=== PATIENT | male | born 1965 | race African-American/Black ===

== ENCOUNTER 2017-04-25 20:20 | Emergency (ER) | payer MEDICARE, OTHER, MEDICAID ==
[~2017-04-25] VITALS: Ht 172.7 cm; Wt 75.0 kg
[~2017-04-25 20:20] MED LIST: ASPI-1160 PO; BUDE6HFA INH; CALC0.25 PO; CALC667C4 PO; CINA60 PO; CLON0.3T PO; DIPH25CA83 PO; FLUT16SP15 NS; GABA100C PO; HYDR-4001 PO; MINO2.5T19 GT; NIFE30TA94 PO; NITR0.4T49 SL; SEVE800T8 PO; TRAM50TA94 PO
[2017-04-25] MEDS ORDERED: IBUPROFEN 600MG TABLET PO ONE (20:45)
[2017-04-25 21:05] LABS: HEMATOCRIT. 32.9 % (42.0-52.0); HEMOGLOBIN. 11.1 g/dL (14.0-18.0); MEAN CORPUSCULAR HEMOGLOBIN 28.1 pg (28.0-32.0); MEAN CORPUSCULAR VOLUME 83.6 fL (80.0-94.0); PLATELET 167 x1000/uL (130-400); RED BLOOD CELL COUNT 3.94 mill/uL (4.7-6.1); RED CELL DISTRIBUTION WIDTH 16.6 % (11.6-14.6)
[2017-04-25 21:10] LABS: CHLORIDE 100 mEq/L (98-107)
[2017-04-25 21:11] LABS: INR 1.2; PROTHROMBIN TIME 12.5 sec (9.4-11.6)
[2017-04-25 21:19] LABS: CARBON DIOXIDE 27 mEq/L (21-32)
[2017-04-25 21:22] LABS: PLATELET ESTIMATE NORMAL
[2017-04-25 22:11] VITALS: BP 210/101
== END 2017-04-25 22:50 | disposition home or self-care (01) ==
LOC: ER 20:38
DX: M79.602 Pain in left arm (principal); M79.89 Other specified soft tissue disorders; I12.0 Hypertensive chronic kidney disease with stage 5 chronic kidney disease or end stage renal disease; J45.909 Unspecified asthma, uncomplicated; N18.6 End stage renal disease; Z79.82 Long term (current) use of aspirin; Z99.2 Dependence on renal dialysis; Z88.8 Allergy status to other drugs, medicaments and biological substances; Z88.6 Allergy status to analgesic agent
CPT/HCPCS: 36415; 80053; 85025; 85610; 93971; 99285

== ENCOUNTER 2017-08-09 23:47 | Emergency (ER) | payer MEDICARE, OTHER, MEDICAID ==
[~2017-08-09] VITALS: Ht 172.7 cm; Wt 81.0 kg
[2017-08-10] MEDS ORDERED: ASPIRIN 81MG TABLET PO ONE
[2017-08-10 01:02] LABS: HEMATOCRIT. 31.2 % (42.0-52.0); HEMOGLOBIN. 10.4 g/dL (14.0-18.0); MEAN CORPUSCULAR HEMOGLOBIN 28.9 pg (28.0-32.0); MEAN PLATELET VOLUME 7.1 fl (7.4-10.4); PLATELET 190 x1000/uL (130-400); RED BLOOD CELL COUNT 3.59 mill/uL (4.7-6.1); RED CELL DISTRIBUTION WIDTH 16.4 % (11.6-14.6)
[2017-08-10 01:06] LABS: INR 1.2
[2017-08-10 01:07] LABS: CHLORIDE 94 mEq/L (98-107)
[2017-08-10 01:11] LABS: ETHANOL BLOOD < 10 mg/dL
[2017-08-10 01:27] LABS: NUCLEATED RED BLOOD CELLS 1 /100 WBC; PLATELET ESTIMATE NORMAL
[2017-08-10 06:15] VITALS: BP 125/75
== END 2017-08-10 06:56 | disposition home or self-care (01) ==
LOC: ER 23:47
DX: R07.9 Chest pain, unspecified (principal); I11.0 Hypertensive heart disease with heart failure; I50.9 Heart failure, unspecified; J45.909 Unspecified asthma, uncomplicated; I44.0 Atrioventricular block, first degree; I25.10 Atherosclerotic heart disease of native coronary artery without angina pectoris; J98.11 Atelectasis; Z88.5 Allergy status to narcotic agent; Z99.2 Dependence on renal dialysis; Z79.82 Long term (current) use of aspirin
CPT/HCPCS: 36415; 71045; 80053; 83690; 84484; 85025; 85610; 93005; 99285; G0482

== ENCOUNTER 2018-02-20 18:50 | Inpatient (IN) | payer MEDICARE, MEDICAID, OTHER ==
[~2018-02-20] VITALS: Ht 172.7 cm; Wt 89.4 kg
[2018-02-20 19:00] VITALS: BP 156/68
[2018-02-20 20:00] VITALS: BP 156/68
[2018-02-20] MEDS ORDERED: ACETAMINOPHEN 325MG TABLET PO PRN (21:30)
[2018-02-20] MEDS ORDERED: NITROGLYCERIN 0.4MG TABLET SL SL PRN (21:30)
[2018-02-20] MEDS ORDERED: ONDANSETRON HCL 4MG TABLET PO PRN (21:30)
[2018-02-20] MEDS ORDERED: HYDRALAZINE HCL 10MG TABLET PO SCH (21:30)
[2018-02-20] MEDS: ATORVASTATIN CALCIUM 40MG TABLET PO SCH (22:23)
[2018-02-20] MEDS: TRAMADOL 50MG TABLET PO PRN (22:24)
[2018-02-20] MEDS: IPRATROPIUM/ALBUTEROL 0.5-3(2.5)MG/3ML NEB HHN SCH (23:56)
[2018-02-21] MEDS ORDERED: HYDRALAZINE 20 MG in SODIUM CHLORIDE 0.9% 49 ML IV PRN (00:30)
[2018-02-21] MEDS: DIPHENHYDRAMINE 50MG CAPSULE PO PRN (01:22)
[2018-02-21] MEDS: ALPRAZOLAM 0.5 MG TABLET PO PRN (03:10)
[2018-02-21] MEDS: IPRATROPIUM/ALBUTEROL 0.5-3(2.5)MG/3ML NEB HHN SCH ×5 (04:04→21:11)
[2018-02-21 07:22] LABS: BASOPHILS % 0.3 % (0.0-2.0); EOSINOPHILS % 0.5 % (0.0-5.0); HEMATOCRIT. 25.2 % (42.0-52.0); HEMOGLOBIN. 8.3 g/dL (14.0-18.0); LYMPHOCYTES % 8.3 % (20.0-50.0); MEAN CORPUSCULAR HEMOGLOBIN 28.9 pg (28.0-32.0); MEAN PLATELET VOLUME 6.8 fl (7.4-10.4); MONOCYTES % 10.8 % (2.0-8.0); NEUTROPHILS % 80.1 % (40.0-76.0); PLATELET 287 x1000/uL (130-400); RED BLOOD CELL COUNT 2.86 mill/uL (4.7-6.1); RED CELL DISTRIBUTION WIDTH 17.1 % (11.6-14.6)
[2018-02-21] MEDS: CLONIDINE 0.2MG TABLET PO SCH ×2 (07:30→14:16)
[2018-02-21 08:07] LABS: CHLORIDE 97 mEq/L (98-107)
[2018-02-21 08:17] VITALS: BP 158/72
[2018-02-21] MEDS: CYANOCOBALAMIN 1000MCG TABLET PO SCH (08:51)
[2018-02-21] MEDS: ASPIRIN 81MG TABLET PO SCH (08:51)
[2018-02-21] MEDS: PREDNISONE 20MG TABLET PO SCH (08:51)
[2018-02-21] MEDS: NAPROXEN 250MG TABLET PO SCH ×2 (08:51→23:59)
[2018-02-21] MEDS: FAMOTIDINE 20MG TABLET PO SCH (08:52)
[2018-02-21] MEDS: CARVEDILOL 25MG TABLET PO SCH (08:52)
[2018-02-21] MEDS: AMLODIPINE 10MG TABLET PO SCH (08:53)
[2018-02-21] MEDS: NITROGLYCERIN OINT 1GM/INCH UDPKT TD SCH ×2 (09:18→17:36)
[2018-02-21] MEDS: LIDOCAINE 5% PATCH TOP SCH (14:56)
[2018-02-21 15:22] LABS: BG BASE EXCESS -1.7 mmol/L (-2.0-2.0); BG CARBOXYHEMOGLOBIN 1.2 % (0.5-1.5); BG DEOXYHEMOGLOBIN 2.9 % (0.0-5.0); BG HCO3 ACT 24.8 mmol/L (22.0-26.0); BG METHEMOGLOBIN 0.2 % (0.0-1.5); BG OXYGEN SATURATION 97.1 % (92.0-98.5); BG OXYHEMOGLOBIN 95.7 % (94.0-97.0); BG PCO2 50.9 mmHg (35.0-45.0); BG PH 7.306 (7.350-7.450); BG PO2 97.7 mmHg (75.0-100.0); BG SAMPLE SITE RIGHT RADIAL; BG VENT MODE NASAL CANNULA
[2018-02-21 20:00] VITALS: BP 138/70
[2018-02-21] MEDS: TRAMADOL 50MG TABLET PO PRN (22:07)
[2018-02-21] MEDS ORDERED: MORPHINE SULFATE 10MG/5ML ORAL SOLN UDC PO PRN (23:30)
[2018-02-21] MEDS ORDERED: MORPHINE SULFATE 2 MG/ML CPJ (NOT FOR IM USE) IV PRN (23:30)
[2018-02-21] MEDS: MORPHINE SULFATE 10MG/5ML ORAL SOLN UDC PO PRN (23:58)
[2018-02-21] MEDS: ATORVASTATIN CALCIUM 40MG TABLET PO SCH (23:59)
[2018-02-22] MEDS: IPRATROPIUM/ALBUTEROL 0.5-3(2.5)MG/3ML NEB HHN SCH ×6 (00:40→21:31)
[2018-02-22] MEDS: HYDRALAZINE HCL 25MG TABLET PO SCH ×4 (00:49→21:55)
[2018-02-22] MEDS: CLONIDINE 0.2MG TABLET PO SCH ×4 (00:49→22:57)
[2018-02-22] MEDS: MORPHINE SULFATE 10MG/5ML ORAL SOLN UDC PO PRN (05:07)
[2018-02-22 07:44] LABS: HEMATOCRIT. 23.8 % (42.0-52.0); MEAN CORPUSCULAR HEMOGLOBIN 29.4 pg (28.0-32.0); MEAN CORPUSCULAR VOLUME 87.6 fL (80.0-94.0); MEAN PLATELET VOLUME 6.8 fl (7.4-10.4); PLATELET 271 x1000/uL (130-400); RED BLOOD CELL COUNT 2.71 mill/uL (4.7-6.1); RED CELL DISTRIBUTION WIDTH 17.8 % (11.6-14.6)
[2018-02-22 08:00] VITALS: BP 155/88
[2018-02-22] MEDS: CARVEDILOL 25MG TABLET PO SCH ×3 (09:01→21:54)
[2018-02-22] MEDS: FAMOTIDINE 20MG TABLET PO SCH (09:01)
[2018-02-22] MEDS: NITROGLYCERIN OINT 1GM/INCH UDPKT TD SCH ×2 (09:01→16:59)
[2018-02-22] MEDS: CYANOCOBALAMIN 1000MCG TABLET PO SCH (09:01)
[2018-02-22] MEDS: ASPIRIN 81MG TABLET PO SCH (09:02)
[2018-02-22] MEDS: AMLODIPINE 10MG TABLET PO SCH (09:02)
[2018-02-22] MEDS: NAPROXEN 250MG TABLET PO SCH ×2 (09:02→21:54)
[2018-02-22] MEDS: PREDNISONE 20MG TABLET PO SCH (09:02)
[2018-02-22] MEDS: OXYCODONE HCL 5MG TABLET PO SCH ×3 (10:38→17:01)
[2018-02-22 10:52] LABS: PLATELET ESTIMATE NORMAL
[2018-02-22] MEDS: LIDOCAINE 5% PATCH TOP SCH (14:08)
[2018-02-22 20:00] VITALS: BP 137/80
[2018-02-22] MEDS: ATORVASTATIN CALCIUM 40MG TABLET PO SCH (21:53)
[2018-02-23] MEDS: IPRATROPIUM/ALBUTEROL 0.5-3(2.5)MG/3ML NEB HHN SCH ×4 (00:08→20:08)
[2018-02-23] MEDS: OXYCODONE HCL 5MG TABLET PO SCH ×6 (05:54→23:17)
[2018-02-23] MEDS: CLONIDINE 0.2MG TABLET PO SCH ×2 (06:00→07:40)
[2018-02-23] MEDS: HYDRALAZINE HCL 25MG TABLET PO SCH ×3 (06:29→21:06)
[2018-02-23 08:06] VITALS: BP 152/71
[2018-02-23] MEDS: NAPROXEN 250MG TABLET PO SCH ×2 (08:17→20:36)
[2018-02-23] MEDS: NITROGLYCERIN OINT 1GM/INCH UDPKT TD SCH ×2 (08:17→16:21)
[2018-02-23] MEDS: ASPIRIN 81MG TABLET PO SCH (08:18)
[2018-02-23] MEDS: AMLODIPINE 10MG TABLET PO SCH (08:18)
[2018-02-23] MEDS: CYANOCOBALAMIN 1000MCG TABLET PO SCH (08:18)
[2018-02-23] MEDS: CARVEDILOL 25MG TABLET PO SCH ×2 (08:18→20:36)
[2018-02-23] MEDS: FAMOTIDINE 20MG TABLET PO SCH (08:19)
[2018-02-23] MEDS: PREDNISONE 20MG TABLET PO SCH (08:19)
[2018-02-23 08:33] LABS: HEMATOCRIT. 26.8 % (42.0-52.0); HEMOGLOBIN. 8.9 g/dL (14.0-18.0); MEAN CORPUSCULAR HEMOGLOBIN 29.3 pg (28.0-32.0); MEAN CORPUSCULAR VOLUME 87.7 fL (80.0-94.0); MEAN PLATELET VOLUME 6.7 fl (7.4-10.4); PLATELET 289 x1000/uL (130-400); RED BLOOD CELL COUNT 3.05 mill/uL (4.7-6.1)
[2018-02-23 09:14] LABS: PHOSPHORUS 5.4 mg/dL (2.5-4.9)
[2018-02-23 09:50] LABS: PLATELET ESTIMATE NORMAL
[2018-02-23 10:01] LABS: VITAMIN B12 SERUM >2000 pg/mL pg/mL (211-911)
[2018-02-23] MEDS: ALPRAZOLAM 0.5 MG TABLET PO PRN (10:17)
[2018-02-23 11:44] LABS: FERRITIN 517 ng/mL (22-322); PROSTRATE SPECIFIC AG TOTAL 0.88 ng/mL (0.0-4.0)
[2018-02-23] MEDS: CLONIDINE 0.3MG TABLET PO SCH ×2 (14:00→21:06)
[2018-02-23] MEDS ORDERED: IPRATROPIUM/ALBUTEROL 0.5-3(2.5)MG/3ML NEB HHN PRN (14:15)
[2018-02-23] MEDS: LIDOCAINE 5% PATCH TOP SCH (15:14)
[2018-02-23] MEDS: BUDESONIDE 0.5MG/2ML NEB HHN SCH (16:49)
[2018-02-23 20:00] VITALS: BP 131/62
[2018-02-23] MEDS ORDERED: BISACODYL 10MG SUPP PR PRN (20:30)
[2018-02-23] MEDS ORDERED: LACTULOSE 20G/30ML UDC PO NR (20:30)
[2018-02-23] MEDS: ATORVASTATIN CALCIUM 40MG TABLET PO SCH (20:36)
[2018-02-23] MEDS: POLYETHYLENE GLYCOL 3350 (17GM) 1 DOSE PACK PO SCH ×2 (20:36→20:43)
[2018-02-23] MEDS ORDERED: EPOETIN ALFA 4000UNITS/ML VIAL SUBCUT SCH (21:00)
[2018-02-23] MEDS: TRAMADOL 50MG TABLET PO PRN (21:07)
[2018-02-24] MEDS ORDERED: LACTULOSE 20G/30ML UDC PO PRN
[2018-02-24] MEDS: IPRATROPIUM/ALBUTEROL 0.5-3(2.5)MG/3ML NEB HHN SCH ×6 (00:09→21:20)
[2018-02-24] MEDS: ALPRAZOLAM 0.5 MG TABLET PO PRN ×2 (04:43→14:18)
[2018-02-24] MEDS: HYDRALAZINE HCL 25MG TABLET PO SCH ×3 (05:07→21:47)
[2018-02-24] MEDS: CLONIDINE 0.3MG TABLET PO SCH ×3 (05:07→21:48)
[2018-02-24] MEDS: OXYCODONE HCL 5MG TABLET PO SCH ×4 (05:08→23:33)
[2018-02-24 06:02] VITALS: BP 156/78
[2018-02-24 08:10] VITALS: BP 128/63
[2018-02-24] MEDS: NAPROXEN 250MG TABLET PO SCH ×2 (08:23→21:45)
[2018-02-24] MEDS: PREDNISONE 20MG TABLET PO SCH (08:23)
[2018-02-24] MEDS: CYANOCOBALAMIN 1000MCG TABLET PO SCH (08:24)
[2018-02-24] MEDS: FOLIC ACID 1MG TABLET PO SCH (08:24)
[2018-02-24] MEDS: ASPIRIN 81MG TABLET PO SCH (08:24)
[2018-02-24] MEDS: DOCUSATE SODIUM 100MG CAPSULE PO SCH ×2 (08:24→17:18)
[2018-02-24] MEDS: FAMOTIDINE 20MG TABLET PO SCH (08:24)
[2018-02-24] MEDS: CARVEDILOL 25MG TABLET PO SCH ×2 (08:25→21:00)
[2018-02-24] MEDS: NITROGLYCERIN OINT 1GM/INCH UDPKT TD SCH ×2 (08:25→17:18)
[2018-02-24] MEDS: AMLODIPINE 10MG TABLET PO SCH (08:25)
[2018-02-24] MEDS: BUDESONIDE 0.5MG/2ML NEB HHN SCH ×2 (08:38→21:19)
[2018-02-24] MEDS: LIDOCAINE 5% PATCH TOP SCH (14:19)
[2018-02-24] MEDS: CARBAMIDE PEROXIDE 6.5% OTIC SOLN 15ML EACH EAR SCH (17:18)
[2018-02-24 20:00] VITALS: BP 147/74
[2018-02-24] MEDS: POLYETHYLENE GLYCOL 3350 (17GM) 1 DOSE PACK PO SCH (21:00)
[2018-02-24] MEDS: ATORVASTATIN CALCIUM 40MG TABLET PO SCH (21:45)
[2018-02-25] MEDS: ALPRAZOLAM 0.5 MG TABLET PO PRN ×2 (00:26→16:52)
[2018-02-25 01:14] VITALS: BP 188/92
[2018-02-25] MEDS: CLONIDINE 0.1MG TABLET PO PRN ×2 (01:14→18:31)
[2018-02-25] MEDS: IPRATROPIUM/ALBUTEROL 0.5-3(2.5)MG/3ML NEB HHN SCH ×3 (01:52→21:29)
[2018-02-25 02:40] VITALS: BP 185/113
[2018-02-25 05:11] VITALS: BP 153/61
[2018-02-25] MEDS: HYDRALAZINE HCL 25MG TABLET PO SCH ×3 (05:54→22:28)
[2018-02-25] MEDS: CLONIDINE 0.3MG TABLET PO SCH ×3 (05:54→22:28)
[2018-02-25] MEDS: OXYCODONE HCL 5MG TABLET PO SCH ×4 (05:55→23:51)
[2018-02-25 08:12] LABS: HEMATOCRIT. 28.2 % (42.0-52.0); HEMOGLOBIN. 9.2 g/dL (14.0-18.0); MEAN CORPUSCULAR HEMOGLOBIN 28.9 pg (28.0-32.0); MEAN CORPUSCULAR VOLUME 88.5 fL (80.0-94.0); MEAN PLATELET VOLUME 7.1 fl (7.4-10.4); PLATELET 279 x1000/uL (130-400); RED BLOOD CELL COUNT 3.18 mill/uL (4.7-6.1); RED CELL DISTRIBUTION WIDTH 18.5 % (11.6-14.6)
[2018-02-25 08:17] VITALS: BP 131/70
[2018-02-25] MEDS: DOCUSATE SODIUM 100MG CAPSULE PO SCH ×2 (10:54→16:16)
[2018-02-25] MEDS: CARVEDILOL 25MG TABLET PO SCH ×2 (10:55→20:07)
[2018-02-25] MEDS: NAPROXEN 250MG TABLET PO SCH ×2 (10:55→20:07)
[2018-02-25] MEDS: FOLIC ACID 1MG TABLET PO SCH (10:56)
[2018-02-25] MEDS: CYANOCOBALAMIN 1000MCG TABLET PO SCH (10:56)
[2018-02-25] MEDS: AMLODIPINE 10MG TABLET PO SCH (10:57)
[2018-02-25] MEDS: ASPIRIN 81MG TABLET PO SCH (10:57)
[2018-02-25] MEDS: PREDNISONE 20MG TABLET PO SCH (10:57)
[2018-02-25] MEDS: FAMOTIDINE 20MG TABLET PO SCH (10:57)
[2018-02-25] MEDS: NITROGLYCERIN OINT 1GM/INCH UDPKT TD SCH ×2 (10:58→16:16)
[2018-02-25] MEDS: CARBAMIDE PEROXIDE 6.5% OTIC SOLN 15ML EACH EAR SCH ×2 (10:58→16:16)
[2018-02-25 13:49] LABS: NUCLEATED RED BLOOD CELLS 1 /100 WBC; PLATELET ESTIMATE NORMAL
[2018-02-25] MEDS: LIDOCAINE 5% PATCH TOP SCH (14:42)
[2018-02-25] MEDS: BUDESONIDE 0.5MG/2ML NEB HHN SCH ×2 (15:30→21:29)
[2018-02-25] MEDS ORDERED: TRAMADOL 50MG TABLET PO PRN (15:30)
[2018-02-25 20:00] VITALS: BP 183/81
[2018-02-25] MEDS: ATORVASTATIN CALCIUM 40MG TABLET PO SCH (20:08)
[2018-02-25] MEDS: POLYETHYLENE GLYCOL 3350 (17GM) 1 DOSE PACK PO SCH (21:00)
[2018-02-25] MEDS ORDERED: EPOETIN ALFA 4000UNITS/ML VIAL SUBCUT SCH (21:00)
[2018-02-25 23:51] VITALS: BP 207/104
[2018-02-26] VITALS (7 sets, daily range): BP systolic 151–205; BP diastolic 62–109
[2018-02-26] MEDS: IPRATROPIUM/ALBUTEROL 0.5-3(2.5)MG/3ML NEB HHN SCH ×4 (00:24→15:42)
[2018-02-26] MEDS: ALPRAZOLAM 0.5 MG TABLET PO PRN (00:57)
[2018-02-26] MEDS: CLONIDINE 0.1MG TABLET PO PRN ×2 (02:28→10:29)
[2018-02-26] MEDS: HYDRALAZINE HCL 25MG TABLET PO SCH ×3 (05:46→22:13)
[2018-02-26] MEDS: CLONIDINE 0.3MG TABLET PO SCH ×3 (05:46→22:14)
[2018-02-26] MEDS: OXYCODONE HCL 5MG TABLET PO SCH ×4 (05:47→23:23)
[2018-02-26] MEDS: BUDESONIDE 0.5MG/2ML NEB HHN SCH ×2 (07:29→21:35)
[2018-02-26] MEDS ORDERED: ALPRAZOLAM 0.5 MG TABLET PO PRN (08:30)
[2018-02-26] MEDS ORDERED: TRAMADOL 50MG TABLET PO PRN (08:30)
[2018-02-26] MEDS: PREDNISONE 20MG TABLET PO SCH (08:45)
[2018-02-26] MEDS: CYANOCOBALAMIN 1000MCG TABLET PO SCH (08:45)
[2018-02-26] MEDS: ASPIRIN 81MG TABLET PO SCH (08:45)
[2018-02-26] MEDS: CARVEDILOL 25MG TABLET PO SCH ×2 (08:45→22:11)
[2018-02-26] MEDS: AMLODIPINE 10MG TABLET PO SCH (08:45)
[2018-02-26] MEDS: NITROGLYCERIN OINT 1GM/INCH UDPKT TD SCH ×2 (08:45→17:00)
[2018-02-26] MEDS: NAPROXEN 250MG TABLET PO SCH ×2 (08:45→22:12)
[2018-02-26] MEDS: FAMOTIDINE 20MG TABLET PO SCH (08:45)
[2018-02-26] MEDS: FOLIC ACID 1MG TABLET PO SCH (08:45)
[2018-02-26] MEDS: DOCUSATE SODIUM 100MG CAPSULE PO SCH ×2 (08:45→17:00)
[2018-02-26] MEDS: CARBAMIDE PEROXIDE 6.5% OTIC SOLN 15ML EACH EAR SCH ×2 (08:46→17:41)
[2018-02-26] MEDS ORDERED: LOSARTAN POTASSIUM 25 MG TABLET PO SCH (10:00)
[2018-02-26] MEDS: LIDOCAINE 5% PATCH TOP SCH (15:19)
[2018-02-26] MEDS: DIPHENHYDRAMINE 50MG CAPSULE PO PRN (16:46)
[2018-02-26 19:06] LABS: 25-HYDROXY VITAMIN D3 17 ng/mL (.)
[2018-02-26] MEDS: POLYETHYLENE GLYCOL 3350 (17GM) 1 DOSE PACK PO SCH (21:00)
[2018-02-26] MEDS: ATORVASTATIN CALCIUM 40MG TABLET PO SCH (22:11)
[2018-02-26] MEDS ORDERED: DESMOPRESSIN ACETATE IVPB 30 MCG in SODIUM CHLORIDE 0.9% 50 ML IV NR (23:30)
[2018-02-27] MEDS: IPRATROPIUM/ALBUTEROL 0.5-3(2.5)MG/3ML NEB HHN SCH (01:21)
[2018-02-27 02:00] VITALS: BP 146/75
== END 2018-02-27 02:15 | disposition short-term general hospital (02) | DRG 70 ==
PROVIDERS: ADMIT Physical Medicine & Rehabilitation Spinal Cord Injury Medicine; ATTEND Internal Medicine Critical Care Medicine
PROC: 5A1D70Z Performance of Urinary Filtration, Intermittent, Less than 6 Hours Per Day (ICD-10-PCS; principal; 2018-02-21)
PROC: 5A09357 Assistance with Respiratory Ventilation, Less than 24 Consecutive Hours, Continuous Positive Airway Pressure (ICD-10-PCS; 2018-02-22)
PROC: 5A09357 Assistance with Respiratory Ventilation, Less than 24 Consecutive Hours, Continuous Positive Airway Pressure (ICD-10-PCS; 2018-02-23)
PROC: 5A09357 Assistance with Respiratory Ventilation, Less than 24 Consecutive Hours, Continuous Positive Airway Pressure (ICD-10-PCS; 2018-02-24)
PROC: 5A1D70Z Performance of Urinary Filtration, Intermittent, Less than 6 Hours Per Day (ICD-10-PCS; 2018-02-25)
PROC: 5A09357 Assistance with Respiratory Ventilation, Less than 24 Consecutive Hours, Continuous Positive Airway Pressure (ICD-10-PCS; 2018-02-25)
PROC: 5A1D70Z Performance of Urinary Filtration, Intermittent, Less than 6 Hours Per Day (ICD-10-PCS; 2018-02-26)
DX: G93.49 Other encephalopathy (principal); I46.9 Cardiac arrest, cause unspecified; N18.6 End stage renal disease; J18.9 Pneumonia, unspecified organism; E44.0 Moderate protein-calorie malnutrition; E87.1 Hypo-osmolality and hyponatremia; I12.0 Hypertensive chronic kidney disease with stage 5 chronic kidney disease or end stage renal disease; I42.9 Cardiomyopathy, unspecified; J94.2 Hemothorax; J90 Pleural effusion, not elsewhere classified; J44.1 Chronic obstructive pulmonary disease with (acute) exacerbation; I24.9 Acute ischemic heart disease, unspecified; J44.0 Chronic obstructive pulmonary disease with (acute) lower respiratory infection; T82.838A Hemorrhage due to vascular prosthetic devices, implants and grafts, initial encounter; E66.01 Morbid (severe) obesity due to excess calories; E78.5 Hyperlipidemia, unspecified; E87.5 Hyperkalemia; G47.33 Obstructive sleep apnea (adult) (pediatric); G62.9 Polyneuropathy, unspecified; G89.29 Other chronic pain; M13.0 Polyarthritis, unspecified; T78.3XXA Angioneurotic edema, initial encounter; S30.1XXA Contusion of abdominal wall, initial encounter; R53.81 Other malaise; G31.84 Mild cognitive impairment of uncertain or unknown etiology; D52.9 Folate deficiency anemia, unspecified; T43.595A Adverse effect of other antipsychotics and neuroleptics, initial encounter; F06.31 Mood disorder due to known physiological condition with depressive features; E87.70 Fluid overload, unspecified; Y84.1 Kidney dialysis as the cause of abnormal reaction of the patient, or of later complication, without mention of misadventure at the time of the procedure; Y92.230 Patient room in hospital as the place of occurrence of the external cause; Z87.891 Personal history of nicotine dependence; Z83.3 Family history of diabetes mellitus; Z82.49 Family history of ischemic heart disease and other diseases of the circulatory system; I25.2 Old myocardial infarction; Z91.19 Patient's noncompliance with other medical treatment and regimen; Z99.2 Dependence on renal dialysis; Z79.899 Other long term (current) drug therapy; Z79.82 Long term (current) use of aspirin; Z90.49 Acquired absence of other specified parts of digestive tract; Z68.30 Body mass index [BMI] 30.0-30.9, adult
CPT/HCPCS: 36415; 36600; 71045; 73522; 80048; 82306; 82375; 82607; 82728; 82746; 82805; 83540; 83550; 83735; 84100; 84134; 84153; 84443; 92523; 92610; 93970; 94640; 97110; 97112; 97116; 97162; 97167; 97530; 97535; C1893; G0515; J0885; J2597; J7512; J7620; J7626; Q0162; Q0163; G0103

== ENCOUNTER 2018-02-27 02:30 | Inpatient (IN) | payer MEDICARE, OTHER ==
[2018-02-27] VITALS (29 sets, daily range): BP systolic 98–181; BP diastolic 37–102
[~2018-02-27] VITALS: Ht 172.7 cm; Wt 78.7 kg
[2018-02-27] MEDS ORDERED: TRAMADOL 50MG TABLET PO PRN (03:15)
[2018-02-27 03:57] LABS: MEAN CORPUSCULAR HEMOGLOBIN 28.9 pg (28.0-32.0); MEAN CORPUSCULAR VOLUME 90.8 fL (80.0-94.0); MEAN PLATELET VOLUME 7.3 fl (7.4-10.4); PLATELET 226 x1000/uL (130-400); RED BLOOD CELL COUNT 2.01 mill/uL (4.7-6.1); RED CELL DISTRIBUTION WIDTH 18.9 % (11.6-14.6)
[2018-02-27 04:02] LABS: HEMOGLOBIN. 5.8 g/dL (14.0-18.0)
[2018-02-27 04:03] LABS: HEMATOCRIT. 18.2 % (42.0-52.0)
[2018-02-27] MEDS ORDERED: IPRATROPIUM/ALBUTEROL 0.5-3(2.5)MG/3ML NEB ONE (05:57)
[2018-02-27 06:10] LABS: PLATELET ESTIMATE NORMAL
[2018-02-27] MEDS ORDERED: DOCUSATE SODIUM 100MG CAPSULE PO PRN (07:00)
[2018-02-27] MEDS ORDERED: ACETAMINOPHEN 325MG TABLET PO PRN (07:00)
[2018-02-27] MEDS ORDERED: IPRATROPIUM/ALBUTEROL 0.5-3(2.5)MG/3ML NEB INH PRN (07:00)
[2018-02-27] MEDS ORDERED: ONDANSETRON HCL 4MG/2ML INJ IV PRN (07:00)
[2018-02-27] MEDS: IPRATROPIUM/ALBUTEROL 0.5-3(2.5)MG/3ML NEB HHN SCH ×2 (07:37→21:01)
[2018-02-27] MEDS: BUDESONIDE 0.5MG/2ML NEB HHN SCH ×2 (07:38→21:00)
[2018-02-27] MEDS: DIPHENHYDRAMINE 25MG CAPSULE PO PRN (08:01)
[2018-02-27] MEDS: HYDROCODONE/ACETAMINOPHEN 5/325MG TABLET PO PRN ×2 (08:02→22:07)
[2018-02-27] MEDS ORDERED: LIDOCAINE HCL 1% 20ML VIAL (Pyxis) INJ ONE (08:39)
[2018-02-27] MEDS: FLUTICASONE PROPIONATE 50MCG/SPRAY BOTTLE BOTHNSTRLS SCH (09:00)
[2018-02-27] MEDS: LORAZEPAM 0.5MG TABLET PO PRN (12:14)
[2018-02-27 17:28] LABS: HEMOGLOBIN 6.7 g/dL (14.0-18.0)
[2018-02-27 17:29] LABS: HEMATOCRIT 20.4 % (42.0-52.0)
[2018-02-27] MEDS: CINACALCET HCL 60MG TABLET PO SCH (21:55)
[2018-02-28] VITALS (23 sets, daily range): BP systolic 140–182; BP diastolic 59–106
[2018-02-28] MEDS: IPRATROPIUM/ALBUTEROL 0.5-3(2.5)MG/3ML NEB HHN SCH ×7 (00:28→23:54)
[2018-02-28] MEDS: LORAZEPAM 0.5MG TABLET PO PRN ×2 (01:01→13:48)
[2018-02-28 01:07] LABS: HEMOGLOBIN 7.1 g/dL (14.0-18.0)
[2018-02-28] MEDS: DIPHENHYDRAMINE 25MG CAPSULE PO PRN ×2 (02:31→13:42)
[2018-02-28 06:20] LABS: MEAN CORPUSCULAR HEMOGLOBIN 30.3 pg (28.0-32.0); MEAN CORPUSCULAR VOLUME 88.2 fL (80.0-94.0); MEAN PLATELET VOLUME 7.2 fl (7.4-10.4); PLATELET 167 x1000/uL (130-400); RED BLOOD CELL COUNT 2.31 mill/uL (4.7-6.1); RED CELL DISTRIBUTION WIDTH 16.1 % (11.6-14.6)
[2018-02-28 07:07] LABS: HEMATOCRIT. 20.4 % (42.0-52.0)
[2018-02-28] MEDS: BUDESONIDE 0.5MG/2ML NEB HHN SCH ×2 (07:35→20:08)
[2018-02-28 07:57] LABS: NUCLEATED RED BLOOD CELLS 4 /100 WBC
[2018-02-28 07:58] LABS: PLATELET ESTIMATE NORMAL
[2018-02-28] MEDS: FLUTICASONE PROPIONATE 50MCG/SPRAY BOTTLE BOTHNSTRLS SCH (10:26)
[2018-02-28] MEDS: CLONIDINE 0.1MG TABLET PO PRN ×2 (10:30→17:59)
[2018-02-28] MEDS: HYDROCODONE/ACETAMINOPHEN 5/325MG TABLET PO PRN (16:01)
[2018-02-28] MEDS ORDERED: CARBAMIDE PEROXIDE 6.5% OTIC SOLN 15ML EACH EAR SCH (17:00)
[2018-02-28] MEDS: CARBAMIDE PEROXIDE 6.5% OTIC SOLN 15ML EACH EAR SCH (18:57)
[2018-02-28] MEDS: CINACALCET HCL 60MG TABLET PO SCH (20:29)
[2018-03-01] VITALS (44 sets, daily range): BP systolic 149–220; BP diastolic 75–118
[2018-03-01] MEDS: DIPHENHYDRAMINE 25MG CAPSULE PO PRN ×2 (00:24→20:45)
[2018-03-01] MEDS: CLONIDINE 0.1MG TABLET PO PRN ×4 (00:25→20:45)
[2018-03-01] MEDS: LORAZEPAM 0.5MG TABLET PO PRN ×2 (01:37→19:30)
[2018-03-01] MEDS: IPRATROPIUM/ALBUTEROL 0.5-3(2.5)MG/3ML NEB HHN SCH ×4 (07:43→20:15)
[2018-03-01] MEDS: BUDESONIDE 0.5MG/2ML NEB HHN SCH ×2 (07:43→20:15)
[2018-03-01] MEDS: CARBAMIDE PEROXIDE 6.5% OTIC SOLN 15ML EACH EAR SCH ×2 (08:19→17:56)
[2018-03-01] MEDS: FLUTICASONE PROPIONATE 50MCG/SPRAY BOTTLE BOTHNSTRLS SCH (09:00)
[2018-03-01 09:38] LABS: HEMATOCRIT. 21.1 % (42.0-52.0); HEMOGLOBIN. 7.1 g/dL (14.0-18.0); MEAN CORPUSCULAR HEMOGLOBIN 30.1 pg (28.0-32.0); MEAN CORPUSCULAR VOLUME 89.4 fL (80.0-94.0); PLATELET 183 x1000/uL (130-400); RED BLOOD CELL COUNT 2.36 mill/uL (4.7-6.1); RED CELL DISTRIBUTION WIDTH 16.4 % (11.6-14.6)
[2018-03-01 10:20] LABS: NUCLEATED RED BLOOD CELLS 2 /100 WBC; PLATELET ESTIMATE NORMAL
[2018-03-01] MEDS ORDERED: LIDOCAINE HCL 1% 20ML VIAL (Pyxis) INJ INFIL NR (14:00)
[2018-03-01] MEDS: HYDROCODONE/ACETAMINOPHEN 5/325MG TABLET PO PRN ×2 (15:10→22:54)
[2018-03-01] MEDS: CINACALCET HCL 60MG TABLET PO SCH (20:45)
[2018-03-01 20:53] LABS: HEMATOCRIT 22.3 % (42.0-52.0); HEMOGLOBIN 7.6 g/dL (14.0-18.0)
[2018-03-01] MEDS: SODIUM CHLORIDE 0.9% INJ 3ML FLUSH IVF SCH (22:00)
[2018-03-02] VITALS (10 sets, daily range): BP systolic 148–216; BP diastolic 67–127
[2018-03-02] MEDS: IPRATROPIUM/ALBUTEROL 0.5-3(2.5)MG/3ML NEB HHN SCH ×3 (00:10→09:33)
[2018-03-02] MEDS: LORAZEPAM 0.5MG TABLET PO PRN (04:27)
[2018-03-02] MEDS: CLONIDINE 0.1MG TABLET PO PRN (04:27)
[2018-03-02] MEDS: SODIUM CHLORIDE 0.9% INJ 3ML FLUSH IVF SCH ×2 (06:00→14:00)
[2018-03-02] MEDS ORDERED: PANTOPRAZOLE 40MG DR TABLET PO SCH (07:30)
[2018-03-02 09:04] LABS: BASOPHILS % 0.4 % (0.0-2.0); EOSINOPHILS % 3.1 % (0.0-5.0); HEMATOCRIT. 22.7 % (42.0-52.0); HEMOGLOBIN. 7.7 g/dL (14.0-18.0); LYMPHOCYTES % 7.5 % (20.0-50.0); MEAN CORPUSCULAR HEMOGLOBIN 30.6 pg (28.0-32.0); MEAN CORPUSCULAR VOLUME 90.5 fL (80.0-94.0); MEAN PLATELET VOLUME 6.7 fl (7.4-10.4); MONOCYTES % 14.6 % (2.0-8.0); NEUTROPHILS % 74.4 % (40.0-76.0); PLATELET 174 x1000/uL (130-400); RED BLOOD CELL COUNT 2.51 mill/uL (4.7-6.1); RED CELL DISTRIBUTION WIDTH 16.2 % (11.6-14.6)
[2018-03-02] MEDS: CARBAMIDE PEROXIDE 6.5% OTIC SOLN 15ML EACH EAR SCH ×2 (09:16→17:28)
[2018-03-02] MEDS: BUDESONIDE 0.5MG/2ML NEB HHN SCH (09:33)
[2018-03-02] MEDS ORDERED: AMLODIPINE 10MG TABLET PO SCH (10:30)
[2018-03-02] MEDS: HYDROCODONE/ACETAMINOPHEN 5/325MG TABLET PO PRN (12:58)
[2018-03-02] MEDS: CLONIDINE 0.3MG TABLET PO SCH ×2 (13:33→17:28)
[2018-03-02] MEDS ORDERED: EPOETIN ALFA 10000UNITS/ML VIAL SUBCUT NR (21:00)
[2018-03-03] MEDS ORDERED: AMLODIPINE 10MG TABLET PO SCH (09:00)
== END 2018-03-02 17:43 | disposition home or self-care (01) | DRG 314 ==
LOC: CVICU 02:30 → 5EST 03-01 17:45
PROVIDERS: ADMIT Internal Medicine; ATTEND Internal Medicine
PROC: 05H733Z Insertion of Infusion Device into Right Axillary Vein, Percutaneous Approach (ICD-10-PCS; principal; 2018-02-27)
PROC: B54MZZA Ultrasonography of Right Upper Extremity Veins, Guidance (ICD-10-PCS; 2018-02-27)
PROC: 30233N1 Transfusion of Nonautologous Red Blood Cells into Peripheral Vein, Percutaneous Approach (ICD-10-PCS; 2018-02-27)
PROC: 5A1D70Z Performance of Urinary Filtration, Intermittent, Less than 6 Hours Per Day (ICD-10-PCS; 2018-02-27)
PROC: 5A1D70Z Performance of Urinary Filtration, Intermittent, Less than 6 Hours Per Day (ICD-10-PCS; 2018-02-28)
DX: T82.838A Hemorrhage due to vascular prosthetic devices, implants and grafts, initial encounter (principal); N18.6 End stage renal disease; I25.110 Atherosclerotic heart disease of native coronary artery with unstable angina pectoris; I13.2 Hypertensive heart and chronic kidney disease with heart failure and with stage 5 chronic kidney disease, or end stage renal disease; G93.40 Encephalopathy, unspecified; I42.9 Cardiomyopathy, unspecified; T78.3XXA Angioneurotic edema, initial encounter; D64.9 Anemia, unspecified; E78.5 Hyperlipidemia, unspecified; E87.5 Hyperkalemia; F17.210 Nicotine dependence, cigarettes, uncomplicated; G47.33 Obstructive sleep apnea (adult) (pediatric); G62.9 Polyneuropathy, unspecified; I50.9 Heart failure, unspecified; J44.9 Chronic obstructive pulmonary disease, unspecified; M16.11 Unilateral primary osteoarthritis, right hip; Y84.1 Kidney dialysis as the cause of abnormal reaction of the patient, or of later complication, without mention of misadventure at the time of the procedure; Z79.899 Other long term (current) drug therapy; Z79.51 Long term (current) use of inhaled steroids; I25.2 Old myocardial infarction; Z88.8 Allergy status to other drugs, medicaments and biological substances; Z99.2 Dependence on renal dialysis; Y92.89 Other specified places as the place of occurrence of the external cause; Z90.49 Acquired absence of other specified parts of digestive tract; Z88.5 Allergy status to narcotic agent
CPT/HCPCS: 36415; 36569; 71045; 76937; 80048; 85007; 85014; 85018; 85027; 86850; 86900; 86920; 92523; 93005; 94640; 97162; 97166; C1725; J0885; J2405; J3490; J7040; J7050; J7620; J7626; P9016; Q0163

== ENCOUNTER 2018-11-14 14:38 | Inpatient (IN) | payer MEDICARE, OTHER ==
[~2018-11-14] VITALS: Ht 175.3 cm; Wt 86.2 kg
[2018-11-14] MEDS ORDERED: SODIUM CHLORIDE 0.9% 1,000 ML IV ONE (14:48)
[2018-11-14] MEDS ORDERED: NITROGLYCERIN 0.4MG TABLET SL SL PRN (15:00)
[2018-11-14] MEDS ORDERED: MORPHINE SULFATE 4 MG/ML CPJ (NOT FOR IM USE) IV ONE (15:30)
[2018-11-14] MEDS ORDERED: DIPHENHYDRAMINE 50MG/ML VIAL IV ONE (15:30)
[2018-11-14 15:50] LABS: CHLORIDE 97 mEq/L (98-107)
[2018-11-14 15:53] LABS: HEMATOCRIT. 38.3 % (42.0-52.0); HEMOGLOBIN. 13.3 g/dL (14.0-18.0); MEAN CORPUSCULAR HEMOGLOBIN 29.8 pg (28.0-32.0); MEAN CORPUSCULAR VOLUME 86.2 fL (80.0-94.0); MEAN PLATELET VOLUME 7.9 fl (7.4-10.4); PLATELET 131 x1000/uL (130-400); RED BLOOD CELL COUNT 4.45 mill/uL (4.7-6.1); RED CELL DISTRIBUTION WIDTH 17.6 % (11.6-14.6)
[2018-11-14 17:34] LABS: PLATELET ESTIMATE NORMAL
[2018-11-14 21:30] VITALS: BP 118/73
[2018-11-14] MEDS ORDERED: DOCUSATE SODIUM 100MG CAPSULE PO PRN (21:30)
[2018-11-14] MEDS ORDERED: GUAIFENESIN 200MG/10ML SUGAR FREE UDC PO PRN (21:30)
[2018-11-14] MEDS ORDERED: MAGNESIUM/ALUMINUM HYDROXIDE/SIMETHICONE 30ML UDC PO PRN (21:30)
[2018-11-14] MEDS ORDERED: ONDANSETRON HCL 4MG/2ML INJ IV PRN (21:30)
[2018-11-14] MEDS ORDERED: ACETAMINOPHEN 325MG TABLET PO PRN (21:30)
[2018-11-14] MEDS ORDERED: IPRATROPIUM/ALBUTEROL 0.5-3(2.5)MG/3ML NEB INH PRN (21:30)
[2018-11-14] MEDS: DIPHENHYDRAMINE 50MG/ML VIAL IV PRN (22:32)
[2018-11-14] MEDS: MORPHINE SULFATE 2 MG/ML CPJ (NOT FOR IM USE) IV PRN (22:32)
[2018-11-15] VITALS (10 sets, daily range): BP systolic 118–188; BP diastolic 67–92
[2018-11-15] MEDS: HYDROCODONE/ACETAMINOPHEN 5/325MG TABLET PO PRN ×2 (01:56→08:17)
[2018-11-15] MEDS: LORAZEPAM 0.5MG TABLET PO PRN (01:57)
[2018-11-15] MEDS: DIPHENHYDRAMINE 50MG/ML VIAL IV PRN ×4 (02:20→21:27)
[2018-11-15] MEDS: MORPHINE SULFATE 2 MG/ML CPJ (NOT FOR IM USE) IV PRN ×5 (02:21→21:16)
[2018-11-15 06:53] LABS: BASOPHILS % 0.5 % (0.0-2.0); EOSINOPHILS % 1.4 % (0.0-5.0); HEMATOCRIT. 40.2 % (42.0-52.0); HEMOGLOBIN. 13.2 g/dL (14.0-18.0); LYMPHOCYTES % 13.4 % (20.0-50.0); MEAN CORPUSCULAR HEMOGLOBIN 28.7 pg (28.0-32.0); MEAN CORPUSCULAR VOLUME 87.6 fL (80.0-94.0); MEAN PLATELET VOLUME 8.1 fl (7.4-10.4); MONOCYTES % 9.9 % (2.0-8.0); NEUTROPHILS % 74.8 % (40.0-76.0); PLATELET 126 x1000/uL (130-400); RED BLOOD CELL COUNT 4.59 mill/uL (4.7-6.1); RED CELL DISTRIBUTION WIDTH 17.2 % (11.6-14.6)
[2018-11-15 07:11] LABS: CHLORIDE 95 mEq/L (98-107)
[2018-11-15 07:47] LABS: PHOSPHORUS 5.9 mg/dL (2.5-4.9)
[2018-11-15 07:49] LABS: HDL CHOLESTEROL 54 mg/dL (40-59)
[2018-11-15 07:52] LABS: T4 FREE 0.98 ng/dL (0.76-1.46)
[2018-11-15 07:53] LABS: LDL CHOLESTEROL 51 mg/dL (5-100)
[2018-11-15] MEDS: ASPIRIN 81MG EC TABLET PO SCH (08:17)
[2018-11-15] MEDS: CARVEDILOL 12.5MG TABLET PO SCH ×2 (08:18→21:25)
[2018-11-15] MEDS: MINOXIDIL 2.5MG TABLET PO SCH ×2 (08:19→18:47)
[2018-11-15] MEDS: CLONIDINE 0.1MG TABLET PO PRN (08:19)
[2018-11-15 09:16] LABS: INR 1.2; PARTIAL THROMBOPLASTIN TIME 34.1 sec (23.4-31.0); PROTHROMBIN TIME 12.1 sec (9.6-11.0)
[2018-11-15] MEDS ORDERED: AMLODIPINE 5MG TABLET PO NR (10:00)
[2018-11-15] MEDS: SEVELAMER CARBONATE 800 MG TABLET PO SCH ×2 (15:25→18:46)
[2018-11-15] MEDS: CLONIDINE 0.3MG TABLET PO SCH ×2 (16:54→21:26)
[2018-11-15] MEDS: ATORVASTATIN CALCIUM 40MG TABLET PO SCH (21:25)
[2018-11-16] VITALS (7 sets, daily range): BP systolic 113–165; BP diastolic 64–91
[2018-11-16] MEDS: MORPHINE SULFATE 2 MG/ML CPJ (NOT FOR IM USE) IV PRN ×5 (02:39→21:34)
[2018-11-16] MEDS: DIPHENHYDRAMINE 50MG/ML VIAL IV PRN ×2 (02:51→14:45)
[2018-11-16] MEDS: CLONIDINE 0.3MG TABLET PO SCH ×3 (06:19→20:44)
[2018-11-16] MEDS ORDERED: REGADENOSON 0.4 MG/5 ML IV NR (08:45)
[2018-11-16] MEDS: ASPIRIN 81MG EC TABLET PO SCH (09:10)
[2018-11-16] MEDS: NIFEDIPINE XL 90MG TAB PO SCH (09:11)
[2018-11-16] MEDS: MINOXIDIL 2.5MG TABLET PO SCH ×2 (09:11→16:52)
[2018-11-16] MEDS: SEVELAMER CARBONATE 800 MG TABLET PO SCH ×3 (09:11→16:52)
[2018-11-16] MEDS: CARVEDILOL 12.5MG TABLET PO SCH ×2 (09:12→20:44)
[2018-11-16 11:31] LABS: BASOPHILS % 0.6 % (0.0-2.0); EOSINOPHILS % 2.7 % (0.0-5.0); HEMATOCRIT. 42.8 % (42.0-52.0); HEMOGLOBIN. 14.1 g/dL (14.0-18.0); LYMPHOCYTES % 22.5 % (20.0-50.0); MEAN CORPUSCULAR HEMOGLOBIN 28.6 pg (28.0-32.0); MEAN CORPUSCULAR VOLUME 86.9 fL (80.0-94.0); MEAN PLATELET VOLUME 7.9 fl (7.4-10.4); MONOCYTES % 14.2 % (2.0-8.0); PLATELET 149 x1000/uL (130-400); RED BLOOD CELL COUNT 4.93 mill/uL (4.7-6.1); RED CELL DISTRIBUTION WIDTH 17.2 % (11.6-14.6)
[2018-11-16] MEDS ORDERED: LORAZEPAM 2MG/ML CPJ IV NR (15:30)
[2018-11-16] MEDS: ATORVASTATIN CALCIUM 40MG TABLET PO SCH (20:44)
[2018-11-17] VITALS: BP 122/76
[2018-11-17] MEDS: DIPHENHYDRAMINE 50MG/ML VIAL IV PRN ×4 (00:36→23:19)
[2018-11-17 04:00] VITALS: BP 112/63
[2018-11-17] MEDS: MORPHINE SULFATE 2 MG/ML CPJ (NOT FOR IM USE) IV PRN ×5 (05:05→22:18)
[2018-11-17] MEDS: CLONIDINE 0.3MG TABLET PO SCH ×3 (06:00→21:13)
[2018-11-17] MEDS: SEVELAMER CARBONATE 800 MG TABLET PO SCH ×3 (07:50→17:59)
[2018-11-17 08:00] VITALS: BP 155/80
[2018-11-17] MEDS ORDERED: REGADENOSON 0.4 MG/5 ML IV NR (08:30)
[2018-11-17] MEDS: NIFEDIPINE XL 90MG TAB PO SCH ×2 (09:00→11:46)
[2018-11-17] MEDS: ASPIRIN 81MG EC TABLET PO SCH (09:00)
[2018-11-17] MEDS: CARVEDILOL 12.5MG TABLET PO SCH ×2 (09:00→11:46)
[2018-11-17] MEDS: MINOXIDIL 2.5MG TABLET PO SCH ×2 (09:18→17:59)
[2018-11-17] MEDS: LORAZEPAM 0.5MG TABLET PO PRN (09:18)
[2018-11-17] MEDS ORDERED: REGADENOSON 0.4 MG/5 ML IV ONE (10:41)
[2018-11-17] MEDS: CLONIDINE 0.1MG TABLET PO PRN (11:38)
[2018-11-17] MEDS: METOPROLOL TARTRATE 50MG TABLET PO SCH ×2 (15:24→21:14)
[2018-11-17 16:00] VITALS: BP 163/96
[2018-11-17 20:00] VITALS: BP 122/77
[2018-11-17] MEDS: ATORVASTATIN CALCIUM 40MG TABLET PO SCH (21:14)
[2018-11-18] VITALS: BP 120/75
[2018-11-18 04:00] VITALS: BP 127/76
[2018-11-18] MEDS: MORPHINE SULFATE 2 MG/ML CPJ (NOT FOR IM USE) IV PRN ×3 (04:07→13:08)
[2018-11-18] MEDS: DIPHENHYDRAMINE 50MG/ML VIAL IV PRN ×3 (04:43→13:08)
[2018-11-18] MEDS: CLONIDINE 0.3MG TABLET PO SCH ×2 (05:20→13:30)
[2018-11-18 08:00] VITALS: BP 145/94
[2018-11-18] MEDS: METOPROLOL TARTRATE 50MG TABLET PO SCH (08:49)
[2018-11-18] MEDS: NIFEDIPINE XL 90MG TAB PO SCH (08:49)
[2018-11-18] MEDS: MINOXIDIL 2.5MG TABLET PO SCH ×2 (08:50→16:19)
[2018-11-18] MEDS: SEVELAMER CARBONATE 800 MG TABLET PO SCH ×3 (08:50→16:18)
[2018-11-18] MEDS: ASPIRIN 81MG EC TABLET PO SCH (08:51)
[2018-11-18 12:00] VITALS: BP 146/87
[2018-11-18 12:44] LABS: HEMATOCRIT. 42.4 % (42.0-52.0); HEMOGLOBIN. 14.1 g/dL (14.0-18.0); MEAN CORPUSCULAR VOLUME 87.2 fL (80.0-94.0); MEAN PLATELET VOLUME 8.1 fl (7.4-10.4); PLATELET 146 x1000/uL (130-400); RED BLOOD CELL COUNT 4.87 mill/uL (4.7-6.1); RED CELL DISTRIBUTION WIDTH 17.6 % (11.6-14.6)
[2018-11-18] MEDS: CLONIDINE 0.1MG TABLET PO PRN (13:19)
[2018-11-18 13:48] LABS: PLATELET ESTIMATE NORMAL
[2018-11-18] MEDS ORDERED: SODIUM POLYSTYRENE SULFONATE 15 G/60 ML BOT PO NR (14:30)
[2018-11-18 16:00] VITALS: BP 142/77
[2018-11-18 16:47] VITALS: BP 142/77
== END 2018-11-18 17:51 | disposition home or self-care (01) | DRG 391 ==
LOC: ER 15:27 → 6WST 16:19 → EDBEDREQ 16:25 → ENRESERV 20:16 → 6WST 21:57
PROVIDERS: ADMIT Family Medicine Adult Medicine; ATTEND Family Medicine Adult Medicine
PROC: 5A1D70Z Performance of Urinary Filtration, Intermittent, Less than 6 Hours Per Day (ICD-10-PCS; 2018-11-15)
PROC: 5A1D70Z Performance of Urinary Filtration, Intermittent, Less than 6 Hours Per Day (ICD-10-PCS; principal; 2018-11-16)
DX: K21.9 Gastro-esophageal reflux disease without esophagitis (principal); N18.6 End stage renal disease; I13.11 Hypertensive heart and chronic kidney disease without heart failure, with stage 5 chronic kidney disease, or end stage renal disease; E87.5 Hyperkalemia; I25.10 Atherosclerotic heart disease of native coronary artery without angina pectoris; J44.9 Chronic obstructive pulmonary disease, unspecified; E78.5 Hyperlipidemia, unspecified; I95.9 Hypotension, unspecified; R79.89 Other specified abnormal findings of blood chemistry; M19.90 Unspecified osteoarthritis, unspecified site; D69.6 Thrombocytopenia, unspecified; E11.22 Type 2 diabetes mellitus with diabetic chronic kidney disease; I25.2 Old myocardial infarction; Z99.2 Dependence on renal dialysis; Z88.8 Allergy status to other drugs, medicaments and biological substances; Z82.49 Family history of ischemic heart disease and other diseases of the circulatory system; Z86.74 Personal history of sudden cardiac arrest; Z88.6 Allergy status to analgesic agent; Z88.5 Allergy status to narcotic agent; Z79.899 Other long term (current) drug therapy; Z79.82 Long term (current) use of aspirin; Z90.49 Acquired absence of other specified parts of digestive tract
CPT/HCPCS: 36415; 71045; 78452; 80048; 80061; 82962; 83735; 83880; 84100; 84439; 84443; 84481; 84484; 93005; 93017; 93306; 93970; 99285; A9500; J1200; J2270; J2405; J2785; J7030; J7620

== ENCOUNTER 2019-11-13 22:33 | Inpatient (IN) | payer MEDICARE, OTHER ==
[~2019-11-13] VITALS: Ht 170.2 cm; Wt 72.6 kg
[2019-11-13] MEDS ORDERED: MAGNESIUM/ALUMINUM HYDROXIDE/SIMETHICONE 30ML UDC PO ONE (23:15)
[2019-11-13] MEDS ORDERED: VISCOUS LIDOCAINE 2% 15 ML UDC PO ONE (23:15)
[2019-11-14 00:09] LABS: BASOPHILS % 0.6 % (0.0-2.0); EOSINOPHILS % 1.1 % (0.0-5.0); HEMATOCRIT. 37.4 % (42.0-52.0); HEMOGLOBIN. 12.5 g/dL (14.0-18.0); LYMPHOCYTES % 14.1 % (20.0-50.0); MEAN CORPUSCULAR HEMOGLOBIN 31.5 pg (28.0-32.0); MEAN CORPUSCULAR VOLUME 94.5 fL (80.0-94.0); MEAN PLATELET VOLUME 7.2 fl (7.4-10.4); MONOCYTES % 12.6 % (2.0-8.0); NEUTROPHILS % 71.6 % (40.0-76.0); PLATELET 129 x1000/uL (130-400); RED BLOOD CELL COUNT 3.96 mill/uL (4.7-6.1); RED CELL DISTRIBUTION WIDTH 18.4 % (11.6-14.6)
[2019-11-14 00:15] LABS: CHLORIDE 96 mEq/L (98-107)
[2019-11-14 00:22] LABS: INR 1.1; PARTIAL THROMBOPLASTIN TIME 31.9 sec (23.4-31.0); PROTHROMBIN TIME 11.8 sec (9.6-11.0)
[2019-11-14 08:00] VITALS: BP 123/82
[2019-11-14] MEDS ORDERED: CARV3.1242 PO (08:42)
[2019-11-14] MEDS ORDERED: ENOXAPARIN 40MG/0.4ML SYR SUBCUT SCH (09:00)
[2019-11-14] MEDS ORDERED: ACETAMINOPHEN 650MG/20.3ML UDC PO PRN (09:15)
[2019-11-14] MEDS: CALCITRIOL 0.25MCG CAPSULE PO SCH (09:16)
[2019-11-14] MEDS: CARVEDILOL 3.125 MG TABLET PO SCH ×2 (09:16→20:40)
[2019-11-14] MEDS: ASPIRIN 81MG TABLET PO SCH (09:16)
[2019-11-14 09:32] VITALS: BP 123/82
[2019-11-14 11:18] LABS: BASOPHILS % 0.6 % (0.0-2.0); EOSINOPHILS % 2.2 % (0.0-5.0); HEMATOCRIT. 38.2 % (42.0-52.0); HEMOGLOBIN. 12.7 g/dL (14.0-18.0); LYMPHOCYTES % 24.2 % (20.0-50.0); MEAN CORPUSCULAR HEMOGLOBIN 31.5 pg (28.0-32.0); MEAN CORPUSCULAR VOLUME 95.1 fL (80.0-94.0); MEAN PLATELET VOLUME 7.6 fl (7.4-10.4); MONOCYTES % 10.7 % (2.0-8.0); NEUTROPHILS % 62.3 % (40.0-76.0); PLATELET 127 x1000/uL (130-400); RED BLOOD CELL COUNT 4.02 mill/uL (4.7-6.1); RED CELL DISTRIBUTION WIDTH 18.2 % (11.6-14.6)
[2019-11-14 11:25] LABS: CHLORIDE 95 mEq/L (98-107)
[2019-11-14 11:33] LABS: LDL CHOLESTEROL 53 mg/dL (5-100)
[2019-11-14 11:34] LABS: HDL CHOLESTEROL 39 mg/dL (40-59)
[2019-11-14 12:00] VITALS: BP 118/72
[2019-11-14] MEDS: CALCIUM ACETATE 667MG CAPSULE PO SCH ×2 (13:08→16:51)
[2019-11-14] MEDS ORDERED: HYDROCODONE/ACETAMINOPHEN 10/325MG TABLET PO NR (13:14)
[2019-11-14 16:00] VITALS: BP 129/84
[2019-11-14] MEDS: ENOXAPARIN 30MG/0.3ML SYR SUBCUT SCH (16:52)
[2019-11-14 20:00] VITALS: BP 160/89
[2019-11-14] MEDS: CLONIDINE 0.3MG TABLET PO SCH (21:27)
[2019-11-14] MEDS: ONDANSETRON HCL 4MG/2ML INJ IV PRN (21:27)
[2019-11-15] VITALS: BP 160/97
[2019-11-15] MEDS: HYDROCODONE/ACETAMINOPHEN 5/325MG TABLET PO PRN ×2 (00:07→04:59)
[2019-11-15 04:00] VITALS: BP 151/87
[2019-11-15] MEDS: CLONIDINE 0.3MG TABLET PO SCH ×2 (04:58→13:53)
[2019-11-15 08:00] VITALS: BP 140/87
[2019-11-15] MEDS: CALCITRIOL 0.25MCG CAPSULE PO SCH (08:42)
[2019-11-15] MEDS: ASPIRIN 81MG TABLET PO SCH (08:42)
[2019-11-15] MEDS: CARVEDILOL 3.125 MG TABLET PO SCH (08:42)
[2019-11-15] MEDS: CALCIUM ACETATE 667MG CAPSULE PO SCH ×2 (08:42→12:09)
[2019-11-15 12:00] VITALS: BP 164/99
[2019-11-15] MEDS: ONDANSETRON HCL 4MG/2ML INJ IV PRN (12:09)
[2019-11-15 15:41] VITALS: BP 141/86
[2019-11-15 16:00] VITALS: BP 141/86
[2019-11-15] MEDS: ENOXAPARIN 30MG/0.3ML SYR SUBCUT SCH (16:00)
== END 2019-11-15 17:00 | disposition home or self-care (01) | DRG 391 ==
LOC: ER 22:33 → 5WST 11-14 00:36 → ENRESERV 11-14 03:26
PROVIDERS: ADMIT Family Medicine; ATTEND Family Medicine
DX: K21.9 Gastro-esophageal reflux disease without esophagitis (principal); N18.6 End stage renal disease; E44.1 Mild protein-calorie malnutrition; E87.1 Hypo-osmolality and hyponatremia; I13.2 Hypertensive heart and chronic kidney disease with heart failure and with stage 5 chronic kidney disease, or end stage renal disease; I50.32 Chronic diastolic (congestive) heart failure; N25.81 Secondary hyperparathyroidism of renal origin; I25.10 Atherosclerotic heart disease of native coronary artery without angina pectoris; D69.6 Thrombocytopenia, unspecified; E78.5 Hyperlipidemia, unspecified; J44.9 Chronic obstructive pulmonary disease, unspecified; E83.39 Other disorders of phosphorus metabolism; R74.0 Nonspecific elevation of levels of transaminase and lactic acid dehydrogenase [LDH]; Z82.49 Family history of ischemic heart disease and other diseases of the circulatory system; I25.2 Old myocardial infarction; Z86.74 Personal history of sudden cardiac arrest; Z99.2 Dependence on renal dialysis; Z79.891 Long term (current) use of opiate analgesic; Z88.6 Allergy status to analgesic agent; Z88.5 Allergy status to narcotic agent; Z88.8 Allergy status to other drugs, medicaments and biological substances; Z79.82 Long term (current) use of aspirin; Z79.899 Other long term (current) drug therapy; Z68.25 Body mass index [BMI] 25.0-25.9, adult
CPT/HCPCS: 36415; 71045; 80053; 80061; 83036; 83880; 84443; 84484; 85025; 93005; 93306; 99285; J1650; J2405

== ENCOUNTER 2020-05-23 14:30 | Inpatient (IN) | payer MEDICARE, OTHER, MEDICAID ==
[~2020-05-23] VITALS: Ht 170.2 cm; Wt 74.8 kg
[~2020-05-23 14:30] MED LIST changes: +CARV3.1242 PO; -GABA100C PO; -MINO2.5T19 GT
[2020-05-23] MEDS ORDERED: IBUPROFEN 600MG TABLET PO STA (15:25)
[2020-05-23 15:51] LABS: HEMATOCRIT. 28.2 % (42.0-52.0); HEMOGLOBIN. 9.3 g/dL (14.0-18.0); MEAN CORPUSCULAR HEMOGLOBIN 29.3 pg (28.0-32.0); MEAN CORPUSCULAR VOLUME 88.7 fL (80.0-94.0); MEAN PLATELET VOLUME 7.2 fl (7.4-10.4); PLATELET 157 x1000/uL (130-400); RED BLOOD CELL COUNT 3.18 mill/uL (4.7-6.1); RED CELL DISTRIBUTION WIDTH 16.4 % (11.6-14.6)
[2020-05-23 16:00] LABS: CHLORIDE 98 mEq/L (98-107)
[2020-05-23 16:07] LABS: PLATELET ESTIMATE NORMAL
[2020-05-23] MEDS ORDERED: ONDANSETRON HCL 4MG/2ML INJ IV PRN (18:45)
[2020-05-23] MEDS ORDERED: ACETAMINOPHEN 325MG TABLET PO PRN (18:45)
[2020-05-23] MEDS ORDERED: LORAZEPAM 2MG/ML CPJ IV PRN (18:45)
[2020-05-23] MEDS ORDERED: MAGNESIUM/ALUMINUM HYDROXIDE/SIMETHICONE 30ML UDC PO PRN (18:45)
[2020-05-23] MEDS ORDERED: GUAIFENESIN 200MG/10ML SUGAR FREE UDC PO PRN (18:45)
[2020-05-23] MEDS ORDERED: CLONIDINE 0.1MG TABLET PO PRN (18:45)
[2020-05-23] MEDS ORDERED: IPRATROPIUM/ALBUTEROL 0.5-3(2.5)MG/3ML NEB HHN PRN (18:45)
[2020-05-23] MEDS ORDERED: POTASSIUM CHLORIDE 20MEQ TABLET SR PO NR (18:45)
[2020-05-23] MEDS ORDERED: DOCUSATE SODIUM 100MG CAPSULE PO PRN (18:45)
[2020-05-23] MEDS ORDERED: ENOXAPARIN 30MG/0.3ML SYR SUBCUT SCH (21:00)
[2020-05-23] MEDS ORDERED: IOHEXOL-300 100 ML BOTTLE ONE (21:28)
[2020-05-23] MEDS: SODIUM CHLORIDE 0.9% INJ 3ML FLUSH IVF SCH (22:23)
[2020-05-24] VITALS (8 sets, daily range): BP systolic 149–215; BP diastolic 77–113
[2020-05-24] MEDS: HYDRALAZINE 20MG/ML VIAL IV PRN ×2 (02:09→13:09)
[2020-05-24 06:51] LABS: HEMATOCRIT. 33.5 % (42.0-52.0); MEAN CORPUSCULAR HEMOGLOBIN 29.5 pg (28.0-32.0); RED BLOOD CELL COUNT 3.72 mill/uL (4.7-6.1); RED CELL DISTRIBUTION WIDTH 16.3 % (11.6-14.6)
[2020-05-24 07:02] LABS: CHLORIDE 98 mEq/L (98-107)
[2020-05-24 07:11] LABS: CREATINE KINASE 246 IU/L (39-308); CREATINE KINASE MB FRACTION 4.1 ng/mL (0.5-3.6)
[2020-05-24] MEDS: SEVELAMER CARBONATE 800 MG TABLET PO SCH ×3 (08:41→17:40)
[2020-05-24] MEDS ORDERED: AMLODIPINE 10MG TABLET PO SCH (09:00)
[2020-05-24] MEDS ORDERED: LOSARTAN POTASSIUM 100 MG TABLET PO SCH (09:00)
[2020-05-24] MEDS ORDERED: HYDRALAZINE HCL 25MG TABLET PO SCH (12:00)
[2020-05-24] MEDS ORDERED: ACETAMINOPHEN WITH CODEINE 300/30MG TABLET PO PRN (12:30)
[2020-05-24] MEDS ORDERED: CLONIDINE 0.1MG TABLET PO SCH (14:00)
[2020-05-24 14:32] LABS: PLATELET ESTIMATE NORMAL
[2020-05-24 14:33] LABS: MEAN PLATELET VOLUME 8.1 fl (7.4-10.4); PLATELET 156 x1000/uL (130-400)
[2020-05-24] MEDS: SODIUM CHLORIDE 0.9% INJ 3ML FLUSH IVF SCH (15:07)
[2020-05-24] MEDS ORDERED: LABETALOL HCL 200MG TABLET PO SCH (21:00)
== END 2020-05-24 19:50 | disposition home or self-care (01) | DRG 391 ==
LOC: ER 14:52 → 8WST 17:42 → EDBEDREQ 17:57 → EDBEDREQTM 17:57 → ENRESERV 20:38
PROVIDERS: ADMIT Internal Medicine; ATTEND Internal Medicine
PROC: 5A1D70Z Performance of Urinary Filtration, Intermittent, Less than 6 Hours Per Day (ICD-10-PCS; principal; 2020-05-24)
DX: K21.9 Gastro-esophageal reflux disease without esophagitis (principal); N18.6 End stage renal disease; E46 Unspecified protein-calorie malnutrition; I13.11 Hypertensive heart and chronic kidney disease without heart failure, with stage 5 chronic kidney disease, or end stage renal disease; R64 Cachexia; R22.2 Localized swelling, mass and lump, trunk; R77.8 Other specified abnormalities of plasma proteins; E87.6 Hypokalemia; J44.9 Chronic obstructive pulmonary disease, unspecified; D64.9 Anemia, unspecified; D72.819 Decreased white blood cell count, unspecified; E83.39 Other disorders of phosphorus metabolism; E05.90 Thyrotoxicosis, unspecified without thyrotoxic crisis or storm; I27.20 Pulmonary hypertension, unspecified; N63.20 Unspecified lump in the left breast, unspecified quadrant; G47.30 Sleep apnea, unspecified; Z82.49 Family history of ischemic heart disease and other diseases of the circulatory system; Z79.899 Other long term (current) drug therapy; Z79.82 Long term (current) use of aspirin; Z79.51 Long term (current) use of inhaled steroids; Z99.2 Dependence on renal dialysis; Z87.891 Personal history of nicotine dependence; Z68.25 Body mass index [BMI] 25.0-25.9, adult
CPT/HCPCS: 36415; 71045; 71250; 71260; 80053; 82550; 82553; 84484; 85025; 93005; 93970; 96372; 99285; J0360; J1650; J2060; J2405; Q9967

== ENCOUNTER 2020-06-24 14:53 | Inpatient (IN) | payer MEDICARE, OTHER, MEDICAID ==
[~2020-06-24] VITALS: Ht 177.8 cm; Wt 73.9 kg
[2020-06-24] MEDS ORDERED: NIFEDIPINE XL 90MG TAB PO ONE (15:15)
[2020-06-24] MEDS ORDERED: LABETALOL 5MG/ML SYR 20 MG/4 ML SYRINGE IV ONE ×2 (15:15→18:15)
[2020-06-24] MEDS ORDERED: CLONIDINE 0.3MG TABLET PO ONE (15:15)
[2020-06-24 17:04] LABS: CHLORIDE 96 mEq/L (98-107)
[2020-06-24 17:06] LABS: BASOPHILS % 0.6 % (0.0-2.0); EOSINOPHILS % 3.6 % (0.0-5.0); HEMATOCRIT. 32.6 % (42.0-52.0); HEMOGLOBIN. 10.7 g/dL (14.0-18.0); LYMPHOCYTES % 21.3 % (20.0-50.0); MEAN CORPUSCULAR HEMOGLOBIN 28.8 pg (28.0-32.0); MEAN CORPUSCULAR VOLUME 87.9 fL (80.0-94.0); MEAN PLATELET VOLUME 7.6 fl (7.4-10.4); MONOCYTES % 10.8 % (2.0-8.0); NEUTROPHILS % 63.7 % (40.0-76.0); PLATELET 128 x1000/uL (130-400); RED BLOOD CELL COUNT 3.71 mill/uL (4.7-6.1); RED CELL DISTRIBUTION WIDTH 16.4 % (11.6-14.6)
[2020-06-24 17:17] LABS: INR 1.1; PARTIAL THROMBOPLASTIN TIME 32.8 sec (23.4-31.0)
[2020-06-24] MEDS ORDERED: DOCUSATE SODIUM 100MG CAPSULE PO PRN (18:15)
[2020-06-24] MEDS ORDERED: IPRATROPIUM/ALBUTEROL 0.5-3(2.5)MG/3ML NEB HHN PRN (18:15)
[2020-06-24] MEDS ORDERED: CLONIDINE 0.1MG TABLET PO PRN (18:15)
[2020-06-24] MEDS ORDERED: MAGNESIUM/ALUMINUM HYDROXIDE/SIMETHICONE 30ML UDC PO PRN (18:15)
[2020-06-24] MEDS ORDERED: ONDANSETRON HCL 4MG/2ML INJ IV PRN (18:15)
[2020-06-24] MEDS ORDERED: GUAIFENESIN 200MG/10ML SUGAR FREE UDC PO PRN (18:15)
[2020-06-24] MEDS ORDERED: DIPHENHYDRAMINE 50MG/ML VIAL IV PRN (18:15)
[2020-06-24] MEDS ORDERED: HYDRALAZINE 20MG/ML VIAL IV PRN (18:15)
[2020-06-24] MEDS ORDERED: ACETAMINOPHEN 325MG TABLET PO PRN (18:15)
[2020-06-24] MEDS ORDERED: LORAZEPAM 2MG/ML CPJ IV PRN (18:15)
[2020-06-24 22:00] VITALS: BP 175/87
[2020-06-24] MEDS: CLONIDINE 0.3MG TABLET PO SCH (22:11)
[2020-06-24] MEDS: SODIUM CHLORIDE 0.9% INJ 3ML FLUSH IVF SCH (22:13)
[2020-06-25] VITALS: BP 154/79
[2020-06-25 00:44] LABS: CREATINE KINASE MB FRACTION 1.4 ng/mL (0.5-3.6)
[2020-06-25 04:00] VITALS: BP 167/81
[2020-06-25] MEDS: CLONIDINE 0.3MG TABLET PO SCH ×3 (06:51→21:30)
[2020-06-25] MEDS: SODIUM CHLORIDE 0.9% INJ 3ML FLUSH IVF SCH ×3 (06:51→21:30)
[2020-06-25 07:10] LABS: EOSINOPHILS % 3.6 % (0.0-5.0); HEMATOCRIT. 34.1 % (42.0-52.0); HEMOGLOBIN. 11.1 g/dL (14.0-18.0); LYMPHOCYTES % 19.3 % (20.0-50.0); MEAN CORPUSCULAR HEMOGLOBIN 28.6 pg (28.0-32.0); MEAN CORPUSCULAR VOLUME 87.6 fL (80.0-94.0); MEAN PLATELET VOLUME 7.5 fl (7.4-10.4); MONOCYTES % 14.4 % (2.0-8.0); NEUTROPHILS % 61.7 % (40.0-76.0); PLATELET 130 x1000/uL (130-400); RED BLOOD CELL COUNT 3.89 mill/uL (4.7-6.1)
[2020-06-25 07:26] LABS: CHLORIDE 96 mEq/L (98-107)
[2020-06-25 07:35] LABS: CREATINE KINASE 130 IU/L (39-308)
[2020-06-25 07:38] LABS: CREATINE KINASE MB FRACTION 1.6 ng/mL (0.5-3.6)
[2020-06-25 08:00] VITALS: BP 176/92
[2020-06-25 12:00] VITALS: BP 170/90
[2020-06-25] MEDS: NIFEDIPINE XL 90MG TAB PO SCH (13:09)
[2020-06-25] MEDS: CARVEDILOL 3.125 MG TABLET PO SCH ×2 (13:09→21:29)
[2020-06-25] MEDS: SEVELAMER CARBONATE 800 MG TABLET PO SCH ×2 (13:09→17:59)
[2020-06-25] MEDS: CALCIUM ACETATE 667MG CAPSULE PO SCH ×2 (13:09→18:00)
[2020-06-25] MEDS: CALCITRIOL 0.25MCG CAPSULE PO SCH (13:09)
[2020-06-25 16:00] VITALS: BP 169/89
[2020-06-25] MEDS: CINACALCET HCL 30MG TABLET PO SCH (17:59)
[2020-06-25 20:00] VITALS: BP 163/85
[2020-06-26] VITALS: BP 172/90
[2020-06-26] MEDS ORDERED: DESMOPRESSIN ACETATE IVPB 30 MCG in SODIUM CHLORIDE 0.9% 50 ML IV NR (01:00)
[2020-06-26 04:00] VITALS: BP 172/90
[2020-06-26] MEDS: SODIUM CHLORIDE 0.9% INJ 3ML FLUSH IVF SCH ×3 (06:54→21:41)
[2020-06-26] MEDS: CLONIDINE 0.3MG TABLET PO SCH ×3 (06:54→22:37)
[2020-06-26] MEDS ORDERED: DESMOPRESSIN ACETATE IVPB 30 MCG in SODIUM CHLORIDE 0.9% 50 ML IV ONE (07:45)
[2020-06-26 08:00] VITALS: BP 171/93
[2020-06-26] MEDS: SEVELAMER CARBONATE 800 MG TABLET PO SCH ×3 (08:55→17:15)
[2020-06-26] MEDS: CARVEDILOL 3.125 MG TABLET PO SCH ×2 (08:55→21:35)
[2020-06-26] MEDS: CALCITRIOL 0.25MCG CAPSULE PO SCH (08:55)
[2020-06-26] MEDS: CALCIUM ACETATE 667MG CAPSULE PO SCH ×3 (08:56→17:15)
[2020-06-26] MEDS: HYDROCODONE/ACETAMINOPHEN 10/325MG TABLET PO PRN ×2 (08:56→17:15)
[2020-06-26] MEDS: NIFEDIPINE XL 90MG TAB PO SCH (08:56)
[2020-06-26 13:29] LABS: HEMATOCRIT 27.6 % (42.0-52.0); HEMOGLOBIN 9.1 g/dL (14.0-18.0); MEAN CORPUSCULAR HEMOGLOBIN 29.1 pg (28.0-32.0); MEAN CORPUSCULAR VOLUME 87.9 fL (80.0-94.0); PLATELET 123 x1000/uL (130-400); RED BLOOD CELL COUNT 3.14 mill/uL (4.7-6.1); RED CELL DISTRIBUTION WIDTH 16.6 % (11.6-14.6)
[2020-06-26 13:48] LABS: T4 FREE 0.86 ng/dL (0.76-1.46)
[2020-06-26] MEDS: HYDRALAZINE HCL 50MG TABLET PO SCH ×2 (14:51→22:37)
[2020-06-26 15:54] VITALS: BP 170/93
[2020-06-26] MEDS: CINACALCET HCL 30MG TABLET PO SCH (17:15)
[2020-06-26 18:12] LABS: CREATINE KINASE 102 IU/L (39-308)
[2020-06-26 18:13] LABS: CREATINE KINASE MB FRACTION 1.7 ng/mL (0.5-3.6)
[2020-06-26 20:00] VITALS: BP 170/90
[2020-06-26 23:46] LABS: CREATINE KINASE 121 IU/L (39-308); CREATINE KINASE MB FRACTION 1.8 ng/mL (0.5-3.6)
[2020-06-27] VITALS (7 sets, daily range): BP systolic 141–180; BP diastolic 79–100
[2020-06-27] MEDS: CLONIDINE 0.3MG TABLET PO SCH ×2 (06:46→13:42)
[2020-06-27] MEDS: SEVELAMER CARBONATE 800 MG TABLET PO SCH ×2 (06:46→12:24)
[2020-06-27] MEDS: HYDRALAZINE HCL 50MG TABLET PO SCH (06:46)
[2020-06-27] MEDS: SODIUM CHLORIDE 0.9% INJ 3ML FLUSH IVF SCH ×2 (06:47→13:45)
[2020-06-27] MEDS: CALCIUM ACETATE 667MG CAPSULE PO SCH ×2 (06:47→12:24)
[2020-06-27 07:13] LABS: CREATINE KINASE 105 IU/L (39-308)
[2020-06-27 07:14] LABS: CREATINE KINASE MB FRACTION 1.8 ng/mL (0.5-3.6)
[2020-06-27] MEDS: CALCITRIOL 0.25MCG CAPSULE PO SCH (08:30)
[2020-06-27] MEDS: CARVEDILOL 3.125 MG TABLET PO SCH (08:33)
[2020-06-27] MEDS: NIFEDIPINE XL 90MG TAB PO SCH (08:34)
[2020-06-27] MEDS ORDERED: HYDRALAZINE HCL 50MG TABLET PO SCH (14:00)
[2020-06-27] MEDS ORDERED: EPOETIN ALFA-EPBX 4,000 UNIT/ML VIAL SUBCUT SCH (21:00)
== END 2020-06-27 17:25 | disposition home or self-care (01) | DRG 314 ==
LOC: ER 15:09 → 8WST 16:44 → EDBEDREQ 16:46 → EDBEDREQTM 16:46 → ENRESERV 18:27
PROVIDERS: ADMIT Internal Medicine; ATTEND Internal Medicine
PROC: 5A1D70Z Performance of Urinary Filtration, Intermittent, Less than 6 Hours Per Day (ICD-10-PCS; principal; 2020-06-27)
DX: T82.838A Hemorrhage due to vascular prosthetic devices, implants and grafts, initial encounter (principal); N18.6 End stage renal disease; E87.1 Hypo-osmolality and hyponatremia; I13.2 Hypertensive heart and chronic kidney disease with heart failure and with stage 5 chronic kidney disease, or end stage renal disease; D63.8 Anemia in other chronic diseases classified elsewhere; D72.819 Decreased white blood cell count, unspecified; E83.39 Other disorders of phosphorus metabolism; I50.9 Heart failure, unspecified; J44.9 Chronic obstructive pulmonary disease, unspecified; I27.20 Pulmonary hypertension, unspecified; Y84.1 Kidney dialysis as the cause of abnormal reaction of the patient, or of later complication, without mention of misadventure at the time of the procedure; Z82.49 Family history of ischemic heart disease and other diseases of the circulatory system; Z91.14 Patient's other noncompliance with medication regimen; Z91.19 Patient's noncompliance with other medical treatment and regimen; Z99.2 Dependence on renal dialysis; Z88.8 Allergy status to other drugs, medicaments and biological substances; Z88.6 Allergy status to analgesic agent; Y92.89 Other specified places as the place of occurrence of the external cause
CPT/HCPCS: 36415; 71045; 80053; 80061; 82550; 82553; 83036; 83880; 84439; 84443; 84484; 85025; 85027; 85379; 86850; 86900; 93005; 93306; 93970; 99291; C1893; J0360; J1200; J2060; J2405; J2597; J3490

== ENCOUNTER → 2023-10-06 | Outpatient (CLI) | payer OTHER, MEDICAID ==
[~2023-10-06] MED LIST changes: +CARV25TA47 PO; -CARV3.1242 PO; +CLON0.2T PO; -CLON0.3T PO; -DIPH25CA83 PO; +DIPH50CA38 PO; -HYDR-4001 PO; +HYDR-4009 MT; +ISOS60TA76 PO; +MINO2.5T19 PO; -NIFE30TA94 PO; +NIFE90TA69 PO; +PANT40TA51 PO; +T4 PO; -TRAM50TA94 PO
== END | disposition home or self-care (01) ==
LOC: RAD 14:50
PROVIDERS: ATTEND Internal Medicine Rheumatology
DX: M17.0 Bilateral primary osteoarthritis of knee (principal)
CPT/HCPCS: 73562

== ENCOUNTER 2023-11-29 08:25 | Emergency (ER) | payer MEDICAID, MEDICARE, OTHER ==
[~2023-11-29] VITALS: Ht 182.9 cm; Wt 91.0 kg
[2023-11-29 08:30] VITALS: O2SAT 95
[2023-11-29] MEDS: TRAMADOL 50MG TABLET PO NR (09:04)
[2023-11-29 09:11] LABS: HEMOGLOBIN. 13.1 g/dL (14.0-18.0); MEAN CORPUSCULAR HGB CONC 32.8 g/dL (31.0-37.0); MEAN CORPUSCULAR VOLUME 91.4 fL (80.0-94.0); MEAN PLATELET VOLUME 7.4 fl (7.4-10.4); PLATELET 250 x1000/uL (130-400); RED BLOOD CELL COUNT 4.37 mill/uL (4.7-6.1); RED CELL DISTRIBUTION WIDTH 15.9 % (11.6-14.6); WHITE BLOOD COUNT 7.5 x1000/uL (4.5-11.0)
[2023-11-29 09:21] LABS: INR 1.4; PROTHROMBIN TIME 14.9 sec (9.6-11.0)
[2023-11-29 09:22] LABS: POTASSIUM 3.8 mEq/L (3.5-5.1)
[2023-11-29 09:24] LABS: CALCIUM 10.2 mg/dL (8.7-10.4)
[2023-11-29 09:32] LABS: DIFFERENTIAL COMMENT 1
[2023-11-29 10:28] LABS: ANISOCYTOSIS 1+; PLATELET ESTIMATE NORMAL
[2023-11-29 10:41] LABS: CREATININE 6.6 mg/dL (0.6-1.3)
[2023-11-29] MEDS ORDERED: TRAM-534 MT (14:07)
[2023-11-29] MEDS ORDERED: MORPHINE SULFATE 4 MG/ML INJ (FOR IV/IM USE) IV ONE (14:30)
[2023-11-29] MEDS: MORPHINE SULFATE 4 MG/ML INJ (FOR IV/IM USE) IV ONE (14:51)
[2023-11-29] MEDS: DIPHENHYDRAMINE 50MG/ML VIAL IV ONE (14:51)
[2023-11-29 16:00] VITALS: BP 156/81; PULSE 80; RESP 16; TEMP 36.16956; O2SAT 95
== END 2023-11-29 16:20 | disposition home or self-care (01) ==
LOC: ER 08:25
DX: G89.29 Other chronic pain (principal); R10.9 Unspecified abdominal pain; M54.9 Dorsalgia, unspecified; J44.9 Chronic obstructive pulmonary disease, unspecified; E78.00 Pure hypercholesterolemia, unspecified; I12.0 Hypertensive chronic kidney disease with stage 5 chronic kidney disease or end stage renal disease; N18.6 End stage renal disease; Z99.2 Dependence on renal dialysis; Z90.89 Acquired absence of other organs; Z98.890 Other specified postprocedural states; Z90.49 Acquired absence of other specified parts of digestive tract; Z88.6 Allergy status to analgesic agent; Z88.5 Allergy status to narcotic agent; Z88.8 Allergy status to other drugs, medicaments and biological substances
CPT/HCPCS: 99285; 96374; 96375; 80048; 83690; 85025; 85610; 36415; J1200; J2270

== ENCOUNTER 2023-12-09 16:02 | Emergency (ER) | payer MEDICARE, OTHER ==
[~2023-12-09] VITALS: Ht 177.8 cm; Wt 96.0 kg
[~2023-12-09 16:02] MED LIST changes: +TRAM-534 MT
[2023-12-09 16:06] VITALS: O2SAT 98
[2023-12-09] MEDS ORDERED: MORPHINE SULFATE 2 MG/ML INJ (NOT FOR IM USE) IV ONE (16:45)
[2023-12-09 19:09] LABS: HEMATOCRIT. 37.8 % (42.0-52.0); HEMOGLOBIN. 12.1 g/dL (14.0-18.0); MEAN CORPUSCULAR HEMOGLOBIN 29.4 pg (28.0-32.0); MEAN CORPUSCULAR HGB CONC 32.1 g/dL (31.0-37.0); MEAN CORPUSCULAR VOLUME 91.4 fL (80.0-94.0); MEAN PLATELET VOLUME 7.2 fl (7.4-10.4); PLATELET 225 x1000/uL (130-400); RED BLOOD CELL COUNT 4.14 mill/uL (4.7-6.1); RED CELL DISTRIBUTION WIDTH 17.1 % (11.6-14.6); WHITE BLOOD COUNT 9.1 x1000/uL (4.5-11.0)
[2023-12-09 19:12] LABS: DIFFERENTIAL COMMENT 1
[2023-12-09 19:14] LABS: CHLORIDE 91 mEq/L (98-107); SODIUM 127 mEq/L (136-145)
[2023-12-09 19:15] LABS: CALCIUM 9.1 mg/dL (8.7-10.4); CARBON DIOXIDE 24 mEq/L (21-32); INR 1.1; PROTHROMBIN TIME 12.6 sec (9.6-11.0)
[2023-12-09 19:20] LABS: GLUCOSE 84 mg/dL (70-105); UREA NITROGEN BLOOD 36 mg/dL (9-23)
[2023-12-09 19:21] LABS: TROPONIN I HIGH SENSITIVITY 32 ng/L (3.0-53)
[2023-12-09 19:22] LABS: ALANINE AMINOTRANSFERASE 14 IU/L (10-49); ALBUMIN 3.7 g/dL (3.2-4.8); ASPARTATE AMINOTRANSFERASE 43 IU/L (<34)
[2023-12-09 19:23] LABS: BILIRUBIN TOTAL < 0.2 mg/dL (0.1-1.0)
[2023-12-09 19:31] LABS: BILIRUBIN DIRECT < 0.1 mg/dL (<=3.0); CREATININE 10.5 mg/dL (0.6-1.3); POTASSIUM 6.7 mEq/L (3.5-5.1)
[2023-12-09 19:41] LABS: PLATELET ESTIMATE NORMAL
[2023-12-09] MEDS ORDERED: ALBUTEROL (0.083%) 2.5MG/3ML NEB HHN NR (19:45)
[2023-12-09] MEDS: MORPHINE SULFATE 2 MG/ML INJ (NOT FOR IM USE) IV NR (19:46)
[2023-12-09] MEDS: DEXTROSE 50% WATER 50ML SYRINGE IV NR (20:20)
[2023-12-09] MEDS: CALCIUM CHLORIDE 1GM/10ML SYR IV NR (20:20)
[2023-12-09] MEDS: INSULIN REGULAR (HUMULIN R) 1000UNITS/10ML VIAL IV NR (20:20)
[2023-12-09] MEDS: SODIUM POLYSTYRENE SULFONATE 15 G/60 ML BOT PO NR (20:21)
[2023-12-09] MEDS: SODIUM BICARBONATE 8.4% 50MEQ/50ML SYR IV NR (20:21)
[2023-12-09] MEDS: FUROSEMIDE 40MG/4ML VIAL IV NR (20:36)
[2023-12-09 23:36] LABS: POTASSIUM 4.6 mEq/L (3.5-5.1)
[2023-12-10] MEDS: MORPHINE SULFATE 2 MG/ML INJ (NOT FOR IM USE) IV PRN (03:22)
[2023-12-10 08:16] VITALS: TEMP 37.00296; O2SAT 100
[2023-12-10 08:24] VITALS: BP 209/113; PULSE 98; RESP 16
[2023-12-10] MEDS ORDERED: ONDANSETRON HCL 4MG/2ML INJ IV PRN (09:15)
[2023-12-10] MEDS ORDERED: DOCUSATE SODIUM 100MG CAPSULE PO PRN (09:15)
[2023-12-10] MEDS ORDERED: IPRATROPIUM/ALBUTEROL 0.5-3(2.5)MG/3ML NEB HHN PRN (09:15)
[2023-12-10] MEDS: HYDRALAZINE HCL 25MG TABLET PO SCH (09:23)
[2023-12-10] MEDS: HYDRALAZINE 20MG/ML VIAL IV PRN (09:24)
[2023-12-10] MEDS: NIFEDIPINE XL 90MG TAB PO NR (09:31)
[2023-12-10] MEDS ORDERED: PIPERACILLIN/TAZO 3.375G/50ML 50 ML IV SCH (10:00)
[2023-12-10 10:06] LABS: T4 FREE 0.7 ng/dL (0.89-1.76); THYROID STIMULATING HORMONE 5.27 uIU/mL (0.55-4.78)
[2023-12-10] MEDS: CLONIDINE 0.1MG TABLET PO NR (11:22)
[2023-12-10 12:35] LABS: HEPATITIS B SURFACE ANTIGEN NEGATIVE (Negative)
[2023-12-10 12:55] LABS: HEPATITIS A AB IGM NEGATIVE (Negative)
[2023-12-10 12:56] LABS: HEPATITIS B CORE AB IGM NEGATIVE (Negative); HEPATITIS C AB NON REACTIVE (Neg) (Negative)
== END 2023-12-10 12:19 | disposition admitted as inpatient to this hospital (09) ==
LOC: ER 16:02 → EDBEDREQ 18:29 → EDBEDREQTM 21:34 → EDBEDREQSVC 21:34 → ER 12-10 12:19
DX: E87.6 Hypokalemia (principal); E78.00 Pure hypercholesterolemia, unspecified; N28.9 Disorder of kidney and ureter, unspecified; J44.1 Chronic obstructive pulmonary disease with (acute) exacerbation; I10 Essential (primary) hypertension; Z20.822 Contact with and (suspected) exposure to COVID-19; Z91.158 Patient's noncompliance with renal dialysis for other reason; Z88.5 Allergy status to narcotic agent; Z90.49 Acquired absence of other specified parts of digestive tract; Z88.8 Allergy status to other drugs, medicaments and biological substances; Z88.3 Allergy status to other anti-infective agents; Z79.899 Other long term (current) drug therapy; Z79.82 Long term (current) use of aspirin; Z90.89 Acquired absence of other organs; Z98.890 Other specified postprocedural states
CPT/HCPCS: 99291; 74176; 96375 ×2; 96374; 71045; 80076; 80048; 82962; 83690; 85025; 85610; 87340; 84484; 36415 ×2; 86709; 93005; 84132; 83036; 84439; 83605; 84443; 87040; 84145; 96376; 86705; J3490 ×2; J1940; J1815; J2270 ×2; J0360